=== PATIENT | female | born 1985 | race Caucasian/White ===

== ENCOUNTER 2019-02-05 13:45 | Emergency (ER) | payer OTHER ==
[~2019-02-05] VITALS: Ht 160 cm; Wt 128.8 kg
[~2019-02-05 13:45] MED LIST: IBUPROFEN 600600 M1 PO; MOBIC15 MG PO; PENICILLIN V P500 MG PO; PENICILLIN VK500 M1 PO; PHENERGAN 25 MG25 M1 PO
[2019-02-05 14:09] LABS: ABSOLUTE NEUTROPHILS 15.5 thou/uL (1.4-8.2); BASOPHILS 0.6 % (0.0-2.0); EOSINOPHILS 0.4 % (0.0-3.0); HEMATOCRIT 40.9 % (37.0-47.0); HEMOGLOBIN 13.7 gm/dL (12.0-15.0); LYMPHOCYTES 11.3 % (24.0-44.0); MCH 26.8 pg (26.0-34.0); MCHC 33.4 g/dL (28.0-37.0); MCV 80.2 fL (80.0-100.0); MONOCYTES 4.3 % (1.0-8.0); PLATELET COUNT 303 thou/uL (150-400); POLYS 83.4 % (36.0-66.0); RDW 16.1 % (10.5-14.5); WBC 18.5 thou/uL (4.0-11.0)
[2019-02-05 14:16] LABS: CALCIUM 9.7 mg/dL (8.5-10.1); CREATININE 0.9 mg/dL (0.6-1.0); POTASSIUM 3.1 mmol/L (3.5-5.1)
[2019-02-05 14:22] LABS: ALBUMIN 4.5 g/dL (3.4-5.0); TOTAL BILIRUBIN 0.9 mg/dL (<0.1-1.0); TOTAL PROTEIN 8.4 g/dL (6.4-8.2)
[2019-02-05] MEDS ORDERED: ALEVE220 MG PO (15:02)
[2019-02-05] MEDS ORDERED: PEPTO-BISMOL1 TAB PO (15:03)
[2019-02-05] MEDS ORDERED: EXCEDRIN CAPLE1 EACH PO (15:04)
[2019-02-05 15:30] LABS: URINE BILIRUBIN NEGATIVE (Negative); URINE BLOOD NEGATIVE (Negative); URINE CLARITY CLEAR; URINE COLOR YELLOW; URINE GLUCOSE-RANDOM* NEGATIVE (Negative); URINE KETONES NEGATIVE (Negative); URINE LEUKOCYTES-REFLEX NEGATIVE (Negative); URINE NITRITE-REFLEX NEGATIVE (Negative); URINE PROTEIN (DIPSTICK) NEGATIVE (Negative); URINE UROBILINOGEN 0.2 E.U./dl (0.2-1.0)
[2019-02-05] MEDS ORDERED: PHENERGAN 25 MG25 M1 PO (17:42)
[2019-02-05] MEDS ORDERED: IBUPROFEN 600600 M1 PO (17:42)
[2019-02-05 18:19] VITALS: BP 153/92
--- NOTE | 2019-02-06 15:17 | EKG ---
[place] [address] [place] [facility] [place] [address] ELECTROCARDIOGRAM REPORT Name: LIONEL GODWIN Room #: DEP ERIKA Rao#: [id number] ������������������ Admission: 02/05/19 ������������������ Attend Phys: Discharge: 02/05/19 ������������������ Date of : 87 Report #: [id number] ����������������������������������������������������������������� [id number] THIS REPORT FOR: //name// [facility] ED Test Date: 2019-02-05 Test Time: 13:53:39 Pat Name: LIONEL GODWIN Department: Room: Gender: F Medical Office Specialist: ALBERT : 1985 Requested By: Sandhya Butler Order Number: [id number] MD: Shin Gonzales Measurements Intervals Sims Rate: 124 P: 49 DE: 218 QRS: 11 QRSD: 77 T: QT: 304 QTc: 437 Interpretive Statements Sinus tachycardia left atrial enlargement Early transition Nonspecific ST-T wave changes No previous ECG available for comparison Electronically Signed On 02-06-2019 15:17:15 CDT by Shin Gonzales [email or web address] ��������������������������������������������� <ELECTRONICALLY SIGNED> ���������������������������������������� By: Shin Gonzales MD ��������������������������������������������� 02/06/19 1517 1353 1353 Shin Gonzales MD /LARA
== END 2019-02-05 18:20 | disposition home or self-care (01) ==
LOC: ER 13:45
PROVIDERS: Physician Assistant
DX: B34.9 Viral infection, unspecified (principal); D72.829 Elevated white blood cell count, unspecified; E86.0 Dehydration; K08.89 Other specified disorders of teeth and supporting structures; R11.0 Nausea; F17.210 Nicotine dependence, cigarettes, uncomplicated; Z88.6 Allergy status to analgesic agent; Z90.89 Acquired absence of other organs